=== PATIENT | male | born 1995 | race Caucasian/White ===

== ENCOUNTER 2024-11-08 14:13 | Emergency (ER) | payer OTHER ==
[~2024-11-08] VITALS: Ht 175.3 cm; Wt 76.6 kg
[2024-11-08 14:18] VITALS: O2SAT 100
[2024-11-08 14:21] VITALS: BP 145/81; PULSE 90; RESP 16; TEMP 36.6; O2SAT 100
[2024-11-09] MEDS ORDERED: SULF1TAB48 MT (17:22)
[2024-11-09] MEDS ORDERED: AMOX1TAB16 MT (17:22)
== END 2024-11-08 19:11 | disposition left against medical advice (07) ==
LOC: ER 14:13
DX: L02.214 Cutaneous abscess of groin (principal); Z53.21 Procedure and treatment not carried out due to patient leaving prior to being seen by health care provider

== ENCOUNTER 2024-11-09 14:15 | Emergency (ER) | payer OTHER ==
[~2024-11-09] VITALS: Ht 175.3 cm; Wt 78.0 kg
[2024-11-09 14:29] VITALS: TEMP 36.8; O2SAT 98
[2024-11-09 15:07] LABS: BASOPHILS % 1.2 % (0.0-2.0); EOSINOPHILS % 2.9 % (0.0-5.0); HEMATOCRIT. 40.0 % (42.0-52.0); HEMOGLOBIN. 13.3 g/dL (14.0-18.0); LYMPHOCYTES % 14.8 % (20.0-50.0); MEAN PLATELET VOLUME 7.4 fl (7.4-10.4); MONOCYTES % 5.8 % (2.0-8.0); NEUTROPHILS % 75.3 % (40.0-76.0); PLATELET 445 x1000/uL (130-400); RED BLOOD CELL COUNT 4.59 mill/uL (4.7-6.1); RED CELL DISTRIBUTION WIDTH 13.8 % (11.6-14.6)
[2024-11-09 15:24] LABS: CREATININE 0.9 mg/dL (0.6-1.3)
[2024-11-09 15:25] LABS: UREA NITROGEN BLOOD 16 mg/dL (9-23)
[2024-11-09 15:33] LABS: INR 0.9
[2024-11-09] MEDS: SODIUM CHLORIDE 0.9% 1,000 ML IV ONE (16:17)
[2024-11-09] MEDS: KETOROLAC 30MG/ML VIAL IM ONE (16:33)
[2024-11-09] MEDS: TETANUS, DIPHTHERIA, PERTUSSIS VAC/PF 0.5ML (>10YR OLD) IM ONE (16:35)
[2024-11-09] MEDS: CEFTRIAXONE 2GM/50ML 50 ML IV ONE (16:44)
[2024-11-09] MEDS: CEFTRIAXONE 2GM/50ML 50 ML IV SCH (17:00)
[2024-11-09] MEDS ORDERED: AMOX1TAB16 MT (17:22)
[2024-11-09] MEDS ORDERED: SULF1TAB48 MT (17:22)
[2024-11-09 17:35] VITALS: BP 139/78; PULSE 96; RESP 16; O2SAT 99
== END 2024-11-09 17:41 | disposition home or self-care (01) ==
LOC: ER 14:15
DX: N45.4 Abscess of epididymis or testis (principal); I49.9 Cardiac arrhythmia, unspecified
CPT/HCPCS: 99285; 96365; 93976; 80048; 85025; 85610; 87040; 36415; 76870; 90715; 93005; 90471; 96372; J1885; J0696